=== PATIENT | male | born 1965 | race Caucasian/White ===

== ENCOUNTER 2024-10-20 20:41 | Inpatient (IN) ==
--- NOTE | 2024-10-20 21:07 | Emergency Department Note ---
Impression & Plan Acute upper abdominal pain, Leukocytosis, Hypertension, History of gastrointestinal ulcer ED Provider Note NAME: RED FONSECA AGE: 59 SEX: M : 1965 ARRIVES VIA: Walk-In INFORMANT: [Patient] ED PROVIDER(S): [Robin Hardin MD] CHIEF COMPLAINT: Abdominal pain HISTORY OF PRESENT ILLNESS: The patient is a 59-year-old male who has had epigastric and right upper quadrant abdominal pain all day. He has been nauseated but he has not vomited. The pain has worsened as the day has gone on. Pain does not radiate. There has been no cough or congestion. No pleuritic discomfort. No shortness of breath. Patient does have a history of ulcers, he takes Protonix as needed. The patient did have his gallbladder removed previously. He recently had right rotator cuff surgery performed 9 days ago. He is still in a sling. He has been using Toradol for discomfort. Patient has not noticed diarrhea, no urinary complaints. There has been no trauma to the abdomen. He states that his pain today feels a lot like his pain did before he had his gallbladder removed. PMHx/PSHx/Social Hx: See Below PHYSICAL EXAM: GENERAL: Patient is in no acute distress. HEENT: No acute trauma, normocephalic atraumatic, mucous membranes moist, no nasal congestion. NECK: No stridor, no adenopathy, no meningismus, trachea is midline. LUNGS: Clear to auscultation bilaterally, no wheeze, no rhonchi, breath sounds equal. HEART: Without murmurs gallops or rubs, regular rate and rhythm. ABDOMEN: Soft, moderately tender in the right upper quadrant and epigastrium. No tenderness to the lower abdomen. EXTREMITIES: No cyanosis. His right arm is in a special sling. NEUROLOGIC: Oriented x 3, no acute motor or sensory deficits, no focal weakness. SKIN: No jaundice, no diaphoresis. DIFFERENTIAL DIAGNOSIS: Biliary colic, pancreatitis, ulcer, gastritis, bowel perforation, diverticulitis, among others. EMERGENCY DEPARTMENT PROCEDURES: MEDICAL DECISION MAKING: There is a mild leukocytosis, this certainly could be consistent with infection or just his pain and stress. There is a normal hemoglobin and platelet count. Sodium and potassium are both slightly low but not in need of emergent correction. No renal failure. No concerning liver enzyme elevation. No evidence for pancreatitis. ECG shows a sinus rhythm, no acute ST elevation. Cardiac enzyme testing x 1 is not consistent with acute cardiac injury. Urinalysis does not show findings of infection, no hematuria. Chest x-ray does not show free air or pneumonia. On exam, the patient was tender in the upper abdomen, especially in the epigastrium and right upper quadrant. Abdominal and pelvis CT does not show free air, pancreatitis or other acute pathology. Patient received IV morphine for pain, IV Zofran for nausea, he was given 1 L of IV saline. He was given IV Pepcid. He received IV labetalol for his elevated blood pressure. He required some additional morphine for pain control. The patient recently underwent shoulder surgery. He has been using Toradol for discomfort. He has a history of previous ulcer. He has been on Protonix but only sporadically. Given his presentation, given his past history, I am concerned about the start of a new ulcer versus some gastritis. The patient is quite uncomfortable and I do think requires a hospital stay, monitoring overnight and possibly a GI consult in the morning. I spoke with the patient and case management, the on-call hospitalist was consulted. Prior/Outside records/notes reviewed: None ECG per my interpretation: Indication was abdominal pain. The ECG shows a normal sinus rhythm with a rate of 96. There is some nonspecific ST change and an incomplete right bundle branch block. There is no ST elevation, no PVCs. The QTc is 462. Continuous Cardiac Monitoring per my interpretation: An order was placed for continuous cardiac monitoring. The monitor shows a rate of 98 with normal sinus rhythm. Imaging/x-ray results per my interpretation: Chest x-ray shows some chronic change, I see no free air, mediastinal widening or pneumothorax. There is no pneumonia. Chronic Medical/Social conditions affecting care: Recent right rotator cuff surgery. History of previous cholecystectomy. History of previous gastric ulcer. Care/Management discussed with: Case management, the on-call hospitalist. Level of care consideration(s): After review of the information above and other included data: --I believe the patient requires escalation of care to admission DISPOSITION: Admission Past Med/Surg History Problem List History of gastrointestinal ulcer (Acute) Hypertension (Acute) Leukocytosis (Acute) Acute upper abdominal pain (Acute) Medical History Gastric ulcer Social History Smoking Status: Never smoker Preferred Language: Nepali Feels Safe at Home: Yes Results & Data (ED) Vital Signs Vital Signs - 24 hr 10/20/24 20:43 10/20/24 20:59 10/20/24 22:04 Temperature 36.3 C L Temperature Source Temporal Artery Scan Pulse Rate 104 H 98 H 90 Pulse Rate [Finger] Pulse Rhythm Regular Respiratory Rate 18 18 Respiratory Effort / Characteristics Non-Labored Spontaneous Respiratory Depth Normal Respiratory Pattern Regular Blood Pressure 155/106 H Blood Pressure [Left Arm] Blood Pressure Mean 122 Blood Pressure Mean [Left Arm] Blood Pressure Position Sitting Pulse Oximetry 95 96 Oxygen Delivery Method Room Air Room Air Sepsis Recent Fever Within 48 Hours No Sepsis New/Unexplained Change in Mental Status N/A Sepsis Action Taken by Nursing No Action Required 10/20/24 22:04 10/20/24 22:38 10/20/24 22:53 Temperature Temperature Source Pulse Rate 88 Pulse Rate [Finger] 94 H 91 H Pulse Rhythm Respiratory Rate 18 18 Respiratory Effort / Characteristics Respiratory Depth Respiratory Pattern Blood Pressure 171/94 H Blood Pressure [Left Arm] 137/103 H 148/97 H Blood Pressure Mean Blood Pressure Mean [Left Arm] 114 114 Blood Pressure Position Pulse Oximetry 95 96 Oxygen Delivery Method Room Air Room Air Sepsis Recent Fever Within 48 Hours Sepsis New/Unexplained Change in Mental Status Sepsis Action Taken by Usp Medications Current Medication List: was personally reviewed by me Laboratory Data Attestation: I reviewed the patient's lab results. 10/20/24 21:07 10/20/24 21:07 Lab Results 10/20/24 10/20/24 Range/Units 21:07 21:09 WBC 13.65 H (4.8-10.8) K/ul RBC 5.23 (4.70-6.10) M/uL Hgb 15.9 (14.0-18.0) g/dl Hct 45.0 (42.0-52.0) % MCV 86.0 (80.0-100.0) fL MCH 30.4 (25.0-34.0) pg MCHC 35.3 (32.0-36.0) g/dL RDW Std Deviation 38.8 (36.4-46.3) fL RDW Coeff of Emiliano 12.3 (11.5-14.5) % Plt Count 271 (130-400) K/uL MPV 10.3 (9.4-12.4) fL Immature Gran % (Auto) 0.7 % Neut % (Auto) 73.9 % Lymph % (Auto) 13.6 % [place] % (Auto) 5.6 % Eos % (Auto) 5.0 % Baso % (Auto) 1.2 % Neut # (Auto) 10.10 H (1.40-6.50) K/uL Lymph # (Auto) 1.85 (1.20-3.40) K/uL [place] # (Auto) 0.76 H (0.11-0.59) K/uL Eos # (Auto) 0.68 H (0.00-0.50) K/uL Baso # (Auto) 0.17 (0.00-0.20) K/uL Immature Gran # (Auto) 0.09 (0.01-0.20) K/uL Sodium 132 L (136-145) mmol/L Potassium 3.4 L (3.5-5.1) mmol/L Chloride 99 (98-107) mmol/L Carbon Dioxide 23 (21-32) mmol/L Anion Gap 10 (3-11) BUN 19 (6-23) mg/dl Creatinine 0.83 (0.6-1.4) mg/dl Est Cr Clr Drug Dosing Not Reportable eGFR 100.82 BUN/Creatinine Ratio 22.9 H (10-20) Glucose 110 H (70-99(Fasting)) mg/dl Calcium 9.8 (8.6-10.3) mg/dl Total Bilirubin 0.6 (0.2-1.0) mg/dl AST 15 (13-39) U/L ALT 15 (7-52) U/L Alkaline Phosphatase 48 (34-104) U/L Troponin I High Sens 4.5 (0-20) pg/ml Total Protein 8.0 (6.0-8.3) gm/dl Albumin 4.7 (3.4-5.0) gm/dl Globulin 3.3 (2.5-4.0) gm/dl Albumin/Globulin Ratio 1.4 (0.9-2) Lipase 21 (11-82) U/L Urine Color Yellow Urine Appearance Clear (Clear) Urine pH 5.5 (4.5-7.5) Ur Specific [place] 1.022 (1.000-1.030) Urine Protein Trace H (Negative) Urine Glucose (UA) Negative (Negative) Urine Ketones Negative (Negative) Urine Blood Negative (Negative) Urine Nitrite Negative (Negative) Urine Bilirubin Negative (Negative) Urine Urobilinogen Negative (Negative) Ur Leukocyte Esterase Negative (Negative) Urine WBC (Auto) 0-5 (0-5) /hpf Urine RBC (Auto) 0-2 (0-2) /hpf U Hyaline Cast (Auto) 0-2 (0-2) /lpf U Epithel Cells (Auto) 0-2 (0-2) /hpf Urine Bacteria (Auto) None Seen (None Seen) Administered Medications Discontinued Medications Famotidine (Pepcid 20mg Iv Push) 20 mg in 5 mls @ 2.5 mls/min IV NOW STA Stop: 10/20/24 21:04 Last Admin: 10/20/24 21:29 Dose: 2.5 mls/min Documented By: MAHAD Sodium Chloride (Nss) 1,000 mls @ 999 mls/hr IV .Q1H1M ONE Stop: 10/20/24 22:03 Last Infusion: 10/20/24 22:20 Dose: Infused Documented By: Admin: 10/20/24 21:28 Dose: 999 mls/hr Documented By: MAHAD Pantoprazole Sodium (Protonix) 40 mg in 10 mls @ 5 mls/min IV NOW ONE Stop: 10/20/24 22:27 Last Admin: 10/20/24 22:38 Dose: 5 mls/min Documented By: MAHAD Ioversol (Optiray 320 100ml) 94 ml IV ONCE ONE Stop: 10/20/24 21:46 Last Admin: 10/20/24 21:46 Dose: 94 ml Documented By: JOAN Labetalol HCl (Labetalol Hcl Iv 5 Mg/Ml 20ml) 5 mg IV NOW STA Stop: 10/20/24 22:29 Last Admin: 10/20/24 22:38 Dose: 5 mg Documented By: MAHAD Morphine Sulfate (Morphine Sulfate 10 Mg/Ml Carp/Vial) 6 mg IV NOW STA Stop: 10/20/24 21:04 Last Admin: 12/26/24 21:31 Dose: 6 mg Documented By: MAHAD Ondansetron HCl (Ondansetron Inj 2 Mg/Ml 2 Ml Vial) 4 mg IV NOW STA Stop: 10/20/24 21:04 Last Admin: 10/20/24 21:29 Dose: 4 mg Documented By: MHAAD Imaging Data Radiologist's Impression: Abdomen/Pelvis CT 10/20/24 20:52 Exam(s): CT ABDOMEN + PELVIS With Contrast IV Amt: 94ml optiray 320 EXAM: CT Abdomen and Pelvis With Intravenous Contrast CLINICAL HISTORY: Reason for exam: ruq pain. TECHNIQUE: Axial computed tomography images of the abdomen and pelvis with intravenous contrast. CTDI is 28.14 mGy and DLP is 1619.97 mGy-cm. Automated exposure control was utilized for the study. A dose lowering technique was utilized adhering to the principles of ALARA. CONTRAST: Patient received 94ml optiray 320 of IV contrast COMPARISON: No relevant prior studies available. FINDINGS: Lung bases: Unremarkable. ABDOMEN: Liver: Hepatic steatosis. Gallbladder and bile ducts: Cholecystectomy. Enlarged CBD, likely reservoir effect. Pancreas: Unremarkable. No mass. No ductal dilation. Spleen: Unremarkable. No splenomegaly. Adrenals: Unremarkable. No mass. Kidneys and ureters: Unremarkable. No solid mass. No hydronephrosis. Stomach and bowel: Incidentally noted duodenal diverticulum. No mucosal thickening. No bowel obstruction. PELVIS: Appendix: No evidence of appendicitis. Bladder: Unremarkable. No mass. Reproductive: Unremarkable as visualized. ABDOMEN and PELVIS: Intraperitoneal space: Unremarkable. No free air, significant free fluid, or fluid collection. Bones/joints: No acute fracture. No dislocation. Soft tissues: Fat-containing umbilical hernia. Vasculature: Unremarkable. No abdominal aortic aneurysm. Lymph nodes: Unremarkable. No enlarged lymph nodes. IMPRESSION: No acute findings in the abdomen or pelvis. Electronically signed by: Devonte Crespo M.D. 10/20/24 22:22 PM Chest X-Ray 10/20/24 20:52 Exam(s): XR CXR 1 VIEW EXAM: XR Chest, 1 View CLINICAL HISTORY: Reason for exam: abd pain. TECHNIQUE: Frontal view of the chest. COMPARISON: No relevant prior studies available. FINDINGS: Lungs: Unremarkable. No consolidation. Pleural space: Unremarkable. No pleural effusion or pneumothorax. Heart: Unremarkable. No cardiomegaly or pulmonary vascular congestion. Bones/joints: No acute fracture. No dislocation. IMPRESSION: No evidence of acute cardiopulmonary disease. Electronically signed by: Devonte Crespo M.D. 10/20/24 21:48 PM Discharge Plan Visit Data Chief Complaint: Abdominal Pain Stated Complaint: CHEST AND ABD PAIN, ED Provider: Robin Hardin Discharge Problem: Acute upper abdominal pain, Leukocytosis, Hypertension, History of gastrointestinal ulcer Patient Disposition: Admitted As Inpatient Condition: Fair Forms Stand Alone Forms: [facility] Referrals Referrals: PCP,NO [Physician] - Discharge Problem: Leukocytosis Qualifiers: Leukocytosis type: unspecified Qualified Code(s): D72.829 - Elevated white blood cell count, unspecified Hypertension Qualifiers: Hypertension type: unspecified Qualified Code(s): I10 - Essential (primary) hypertension
[2024-10-20 21:25] LABS: Appearance Urine Clear (Clear); Bacteria Urine Automated None Seen (None Seen); Bilirubin Urine Negative (Negative); Blood Urine Negative (Negative); Cast Urine Automated 0-2 /lpf (0-2); Color Urine Yellow; Epithelial Cell Urine Auto 0-2 /hpf (0-2); Glucose Urine UA Negative (Negative); Ketones Urine Negative (Negative); Leukocyte Esterase Urine Negative (Negative); Nitrite Urine Negative (Negative); Protein Urine Trace (Negative); RBC Urine Automated 0-2 /hpf (0-2); Specific Gravity Urine 1.022 (1.000-1.030); Urobilinogen Urine Negative (Negative); WBC Urine Automated 0-5 /hpf (0-5); pH Urine 5.5 (4.5-7.5)
[2024-10-20] MEDS: SODIUM CHLORIDE 0.9% 1,000 ML IV ONE (21:28)
[2024-10-20] MEDS: FAMOTIDINE 20MG IV PUSH 20 MG/5 ML SYR IV STA (21:29)
[2024-10-20] MEDS: ONDANSETRON INJ 2 MG/ML 2 ML VIAL IV STA (21:29)
[2024-10-20] MEDS: MoRPHine SULFATE 10 MG/ML CARP/VIAL IV STA (21:31)
[2024-10-20 21:36] LABS: Basophils # (auto) 0.17 K/uL (0.00-0.20); Basophils % (auto) 1.2 %; Eosinophils # (auto) 0.68 K/uL (0.00-0.50); Hemoglobin 15.9 g/dl (14.0-18.0); Immature Granulocytes # (auto) 0.09 K/uL (0.01-0.20); Immature Granulocytes % (auto) 0.7 %; Lymphocytes # (auto) 1.85 K/uL (1.20-3.40); Lymphocytes % (auto) 13.6 %; Mean Corpuscular Hemoglobin 30.4 pg (25.0-34.0); Mean Corpuscular Hgb Conc 35.3 g/dL (32.0-36.0); Mean Platelet Volume 10.3 fL (9.4-12.4); Monocytes # (auto) 0.76 K/uL (0.11-0.59); Monocytes % (auto) 5.6 %; Neutrophils % (auto) 73.9 %; Platelet Count 271 K/uL (130-400); RDW Coefficient of Variation 12.3 % (11.5-14.5); RDW Standard Deviation 38.8 fL (36.4-46.3); Red Blood Count 5.23 M/uL (4.70-6.10); White Blood Count 13.65 K/ul (4.8-10.8)
[2024-10-20 21:37] LABS: Alanine Aminotransferase 15 U/L (7-52); Albumin Globulin Ratio 1.4 (0.9-2); Albumin Level 4.7 gm/dl (3.4-5.0); Alkaline Phosphatase 48 U/L (34-104); Anion Gap 10 (3-11); Aspartate Aminotransferase 15 U/L (13-39); BUN Creatinine Ratio 22.9 (10-20); Bilirubin,Total 0.6 mg/dl (0.2-1.0); Blood Urea Nitrogen 19 mg/dl (6-23); Calcium 9.8 mg/dl (8.6-10.3); Carbon Dioxide 23 mmol/L (21-32); Chloride 99 mmol/L (98-107); Globulin 3.3 gm/dl (2.5-4.0); Glucose 110 mg/dl (70-99(Fasting)); Lipase 21 U/L (11-82); Potassium 3.4 mmol/L (3.5-5.1); Sodium 132 mmol/L (136-145)
[2024-10-20 21:43] LABS: Troponin I High Sensitivity 4.5 pg/ml (0-20)
[2024-10-20] MEDS: OPTIRAY 320 100ml IV ONE (21:46)
--- NOTE | 2024-10-20 21:50 | XRay Report ---
Exam(s): XR CXR 1 VIEW EXAM: XR Chest, 1 View CLINICAL HISTORY: Reason for exam: abd pain. TECHNIQUE: Frontal view of the chest. COMPARISON: No relevant prior studies available. FINDINGS: Lungs: Unremarkable. No consolidation. Pleural space: Unremarkable. No pleural effusion or pneumothorax. Heart: Unremarkable. No cardiomegaly or pulmonary vascular congestion. Bones/joints: No acute fracture. No dislocation. IMPRESSION: No evidence of acute cardiopulmonary disease. Electronically signed by: Devonte Crespo M.D. 10/20/24 21:48 PM
--- NOTE | 2024-10-20 22:24 | CT Scan Report ---
Exam(s): CT ABDOMEN + PELVIS With Contrast IV Amt: 94ml optiray 320 EXAM: CT Abdomen and Pelvis With Intravenous Contrast CLINICAL HISTORY: Reason for exam: ruq pain. TECHNIQUE: Axial computed tomography images of the abdomen and pelvis with intravenous contrast. CTDI is 28.14 mGy and DLP is 1619.97 mGy-cm. Automated exposure control was utilized for the study. A dose lowering technique was utilized adhering to the principles of ALARA. CONTRAST: Patient received 94ml optiray 320 of IV contrast COMPARISON: No relevant prior studies available. FINDINGS: Lung bases: Unremarkable. ABDOMEN: Liver: Hepatic steatosis. Gallbladder and bile ducts: Cholecystectomy. Enlarged CBD, likely reservoir effect. Pancreas: Unremarkable. No mass. No ductal dilation. Spleen: Unremarkable. No splenomegaly. Adrenals: Unremarkable. No mass. Kidneys and ureters: Unremarkable. No solid mass. No hydronephrosis. Stomach and bowel: Incidentally noted duodenal diverticulum. No mucosal thickening. No bowel obstruction. PELVIS: Appendix: No evidence of appendicitis. Bladder: Unremarkable. No mass. Reproductive: Unremarkable as visualized. ABDOMEN and PELVIS: Intraperitoneal space: Unremarkable. No free air, significant free fluid, or fluid collection. Bones/joints: No acute fracture. No dislocation. Soft tissues: Fat-containing umbilical hernia. Vasculature: Unremarkable. No abdominal aortic aneurysm. Lymph nodes: Unremarkable. No enlarged lymph nodes. IMPRESSION: No acute findings in the abdomen or pelvis. Electronically signed by: Devonte Crespo M.D. 10/20/24 22:22 PM
[2024-10-20] MEDS: PANTOprazole 40 MG/10 ML SYR IV ONE (22:38)
[2024-10-20] MEDS: LABETALOL HCL IV 5 MG/ML 20ML IV STA (22:38)
[2024-10-20] MEDS: MoRPHine SULFATE 4 MG/ML 1 ML CARP\\VIAL IV STA (23:48)
--- NOTE | 2024-10-21 | History & Physical Report ---
Date of Service October 21, 2024 Assessment & Plan (1) Acute upper abdominal pain: Plan: 59yo male presenting with one day of acute upper abdominal pain. Suspect secondary to recent Toradol use - possible gastritis, esophagitis vs ulcer. No bleeding, no hematemesis/melena/hematochezia. Patient is HD stable with normal BUN and H/H. CT with no evidence of perforation, inflammation or pancreatitis -Admit to medical -Check hemoccult stools once -Maintain NPO for now -Morphine PRN -Protonix 40mg IV BID -Zofran PRN nausea -Consider GI consultation if persistent (2) Hypertension: Plan: Elevated blood pressure on arrival in setting of pain -Pain control -Continue Diovan and Metoprolol -Monitor BP Plan F/E/N - NSS at 125mL/hr + KCl x 2L, K repletion, repeat BMP, NPO for now PPx - Encourage ambulation Code - Full Dispo - Admit to medical with telemetry History of Present Illness Chief Complaint: epigastric pain Primary Care Provider: Meño Alvarez MD Johnathan De Los Santos is a 59yo male presenting with epigastric pain. Patient had right rotator cuff surgery performed on 10/11/24. The surgery was well tolerated with no complications. He has been taking Toradol and Oxycodone q 6 hours for pain control. This AM around 04:30 patient developed severe epigastric pain with bandlike radiation across the upper abdomen. 6/10 in severity, burning/pressure. He has some nausea as well but no vomiting, chills and some diaphoresis associated with the pain. Patient with history of reflux - takes Protonix PRN. He had one prior episode of GIB in the past - June 2024 after taking I buprofen he passed several bloody BMs. Treated with a bland diet. Ate a little bit today - turkey sandwich around 10:30 - no change in his abdominal pain. No additional complaints at this time. In the ER patient afebrile, mildly hypertensive, in continued discomfort ER Course: NSS x 1L Pepcid 20mg IV Zofran 4mg IV Morphine 6mg + 4mg IV Protonix 40mg IV Labetalol 5mg IV Allergies Allergy/AdvReac Type Severity Reaction Status Date / Time [id number] Reductase Allergy Joint Pain Verified 10/21/24 03:32 Inhibitor Home Medications Medication Instructions Recorded Confirmed Type acyclovir 400 mg tablet 400 mg PO DAILY 10/20/24 10/20/24 History chlorthalidone 25 mg tablet 25 mg PO DAILY 10/20/24 10/20/24 History ezetimibe 10 mg tablet 10 mg PO DAILY 10/20/24 10/20/24 History metoprolol succinate 100 mg 100 mg PO DAILY 10/20/24 10/20/24 History tablet,extended release 24 hr pantoprazole 40 mg tablet,delayed 40 mg PO DAILY 10/20/24 10/20/24 History release valsartan 320 mg tablet 320 mg PO DAILY 10/20/24 10/20/24 History Past Med/Surg History Problem List History of gastrointestinal ulcer (Acute) Hypertension (Acute) Leukocytosis (Acute) Acute upper abdominal pain (Acute) Medical History Gastric ulcer Social History Smoking Status: Never smoker Hx Alcohol Use: No Hx Substance Use: No Preferred Language: Pashto Communication Ability: Effective Certified Optician Required: No Beliefs That Will Affect Care: None Current Living Situation: Significant Other Other Information That Helps Us Care for You: No Feels Safe at Home: Yes Safety Concerns: Feels Safe At This Time Assistive Devices: Glasses Review of Systems Review of Systems: All systems reviewed & are unremarkable except as noted in HPI & below Physical Exam Physical Exam: General: patient resting comfortably, NAD, non-toxic in appearance, AA&O x 4 Skin: warm, dry, intact, no rashes or lesions HEENT: NC/AT, PERRL, EOMI, anicteric sclera, conjunctiva without injection, external ear normal to inspection and nontender, nares patent, moist mucus membranes, dentition intact, no oropharyngeal lesions, neck supple, trachea midline, no LAD, no thyromegaly, no JVD Heart: +S1/S2, regular, no m/r/g Lungs: equal air entry bilaterally, no rales/rhonchi/wheezes Abd: +BS, soft, ND, epigastric tenderness on exam with some voluntary guarding, no masses/organomegaly/ascites Ext: warm, 2+ pulses in UE/LE bilaterally, no clubbing/cyanosis or edema Neuro: nonfocal, patient AA&O x 4, speech intact, no facial droop, moving all extremities on command with equal strength 5/5 Results & Data Results & Data Vital Signs (Past 12 Hours) Vital Signs Temp Pulse Pulse Resp BP BP Pulse Ox 10/20/24 23:48 91 H 162/86 H 10/20/24 22:53 91 H 18 148/97 H 96 10/20/24 22:38 88 171/94 H 10/20/24 22:04 94 H 18 137/103 H 95 10/20/24 22:04 90 18 96 10/20/24 20:59 98 H 10/20/24 20:43 36.3 C L 104 H 18 155/106 H 95 O2 Del Method 10/20/24 23:48 10/20/24 22:53 Room Air 10/20/24 22:38 10/20/24 22:04 Room Air 10/20/24 22:04 Room Air 10/20/24 20:59 10/20/24 20:43 Room Air Laboratory Results Laboratory Results WBC 11.84 K/ul (4.8-10.8) H 10/21/24 03:41 RBC 5.02 M/uL (4.70-6.10) 10/21/24 03:41 Hgb 15.2 g/dl (14.0-18.0) 10/21/24 03:41 Hct 43.5 % (42.0-52.0) 10/21/24 03:41 MCV 86.7 fL (80.0-100.0) 10/21/24 03:41 MCH 30.3 pg (25.0-34.0) 10/21/24 03:41 MCHC 34.9 g/dL (32.0-36.0) 10/21/24 03:41 RDW Std Deviation 39.7 fL (36.4-46.3) 10/21/24 03:41 RDW Coeff of Emiliano 12.4 % (11.5-14.5) 10/21/24 03:41 Plt Count 234 K/uL (130-400) 10/21/24 03:41 MPV 10.4 fL (9.4-12.4) 10/21/24 03:41 Immature Gran % (Auto) 0.7 % 10/20/24 21:07 Neut % (Auto) 73.9 % 10/20/24 21:07 Lymph % (Auto) 13.6 % 10/20/24 21:07 [place] % (Auto) 5.6 % 10/20/24 21:07 Eos % (Auto) 5.0 % 10/20/24 21:07 Baso % (Auto) 1.2 % 10/20/24 21:07 Neut # (Auto) 10.10 K/uL (1.40-6.50) H 10/20/24 21:07 Lymph # (Auto) 1.85 K/uL (1.20-3.40) 10/20/24 21:07 [place] # (Auto) 0.76 K/uL (0.11-0.59) H 10/20/24 21:07 Eos # (Auto) 0.68 K/uL (0.00-0.50) H 10/20/24 21:07 Baso # (Auto) 0.17 K/uL (0.00-0.20) 10/20/24 21:07 Immature Gran # (Auto) 0.09 K/uL (0.01-0.20) 10/20/24 21:07 Sodium 132 mmol/L (136-145) L 10/20/24 21:07 Potassium 3.4 mmol/L (3.5-5.1) L 10/20/24 21:07 Chloride 99 mmol/L (98-107) 10/20/24 21:07 Carbon Dioxide 23 mmol/L (21-32) 10/20/24 21:07 Anion Gap 10 (3-11) 10/20/24 21:07 BUN 19 mg/dl (6-23) 10/20/24 21:07 Creatinine 0.83 mg/dl (0.6-1.4) 10/20/24 21:07 Est Cr Clr Drug Dosing Not Reportable 10/20/24 21:07 eGFR 100.82 10/20/24 21:07 BUN/Creatinine Ratio 22.9 (10-20) H 10/20/24 21:07 Glucose 110 mg/dl (70-99(Fasting)) H 10/20/24 21:07 Calcium 9.8 mg/dl (8.6-10.3) 10/20/24 21:07 Total Bilirubin 0.6 mg/dl (0.2-1.0) 10/20/24 21:07 AST 15 U/L (13-39) 10/20/24 21:07 ALT 15 U/L (7-52) 10/20/24 21:07 Alkaline Phosphatase 48 U/L (34-104) 10/20/24 21:07 Troponin I High Sens 4.5 pg/ml (0-20) 10/20/24 21:07 Total Protein 8.0 gm/dl (6.0-8.3) 10/20/24 21:07 Albumin 4.7 gm/dl (3.4-5.0) 10/20/24 21:07 Globulin 3.3 gm/dl (2.5-4.0) 10/20/24 21:07 Albumin/Globulin Ratio 1.4 (0.9-2) 10/20/24 21:07 Lipase 21 U/L (11-82) 10/20/24 21:07 Urine Color Yellow 10/20/24 21:09 Urine Appearance Clear (Clear) 10/20/24 21:09 Urine pH 5.5 (4.5-7.5) 10/20/24 21:09 Ur Specific [place] 1.022 (1.000-1.030) 10/20/24 21:09 Urine Protein Trace (Negative) H 10/20/24 21:09 Urine Glucose (UA) Negative (Negative) 10/20/24 21:09 Urine Ketones Negative (Negative) 10/20/24 21:09 Urine Blood Negative (Negative) 10/20/24 21:09 Urine Nitrite Negative (Negative) 10/20/24 21:09 Urine Bilirubin Negative (Negative) 10/20/24 21:09 Urine Urobilinogen Negative (Negative) 10/20/24 21:09 Ur Leukocyte Esterase Negative (Negative) 10/20/24 21:09 Urine WBC (Auto) 0-5 /hpf (0-5) 10/20/24 21:09 Urine RBC (Auto) 0-2 /hpf (0-2) 10/20/24 21:09 U Hyaline Cast (Auto) 0-2 /lpf (0-2) 10/20/24 21:09 U Epithel Cells (Auto) 0-2 /hpf (0-2) 10/20/24 21:09 Urine Bacteria (Auto) None Seen (None Seen) 10/20/24 21:09 Impressions Abdomen/Pelvis CT 10/20/24 20:52 Exam(s): CT ABDOMEN + PELVIS With Contrast IV Amt: 94ml optiray 320 EXAM: CT Abdomen and Pelvis With Intravenous Contrast CLINICAL HISTORY: Reason for exam: ruq pain. TECHNIQUE: Axial computed tomography images of the abdomen and pelvis with intravenous contrast. CTDI is 28.14 mGy and DLP is 1619.97 mGy-cm. Automated exposure control was utilized for the study. A dose lowering technique was utilized adhering to the principles of ALARA. CONTRAST: Patient received 94ml optiray 320 of IV contrast COMPARISON: No relevant prior studies available. FINDINGS: Lung bases: Unremarkable. ABDOMEN: Liver: Hepatic steatosis. Gallbladder and bile ducts: Cholecystectomy. Enlarged CBD, likely reservoir effect. Pancreas: Unremarkable. No mass. No ductal dilation. Spleen: Unremarkable. No splenomegaly. Adrenals: Unremarkable. No mass. Kidneys and ureters: Unremarkable. No solid mass. No hydronephrosis. Stomach and bowel: Incidentally noted duodenal diverticulum. No mucosal thickening. No bowel obstruction. PELVIS: Appendix: No evidence of appendicitis. Bladder: Unremarkable. No mass. Reproductive: Unremarkable as visualized. ABDOMEN and PELVIS: Intraperitoneal space: Unremarkable. No free air, significant free fluid, or fluid collection. Bones/joints: No acute fracture. No dislocation. Soft tissues: Fat-containing umbilical hernia. Vasculature: Unremarkable. No abdominal aortic aneurysm. Lymph nodes: Unremarkable. No enlarged lymph nodes. IMPRESSION: No acute findings in the abdomen or pelvis. Electronically signed by: Devonte Crespo M.D. 10/20/24 22:22 PM Chest X-Ray 10/20/24 20:52 Exam(s): XR CXR 1 VIEW EXAM: XR Chest, 1 View CLINICAL HISTORY: Reason for exam: abd pain. TECHNIQUE: Frontal view of the chest. COMPARISON: No relevant prior studies available. FINDINGS: Lungs: Unremarkable. No consolidation. Pleural space: Unremarkable. No pleural effusion or pneumothorax. Heart: Unremarkable. No cardiomegaly or pulmonary vascular congestion. Bones/joints: No acute fracture. No dislocation. IMPRESSION: No evidence of acute cardiopulmonary disease. Electronically signed by: Devonte Crespo M.D. 10/20/24 21:48 PM PG Care Time/CCT Total # of Minutes Spent Total Time Spent with Patient: Total time spent is greater than 50% in coordination of care (as documented) at patient's floor/unit and/or counseling patient: Coding Level of Care Code 50368 INT INP/OBS CARE 2/55MIN Diagnoses Acute upper abdominal pain R10.10 Hypertension I10 Hypertension type: unspecified (2) Hypertension Hypertension type: unspecified Qualified Code(s): I10 - Essential (primary) hypertension
[2024-10-21] MEDS ORDERED: MoRPHine SULFATE 2 MG/ML CARP IV PRN (02:25)
[2024-10-21] MEDS ORDERED: DOCUSATE SODIUM 100 MG CAP PO PRN (02:25)
[2024-10-21] MEDS: Patient's ALLERGY Info needs ENTERED STA (03:41)
[2024-10-21] MEDS: MoRPHine SULFATE 4 MG/ML 1 ML CARP\\VIAL IV PRN (03:50)
[2024-10-21] MEDS: NSS + 20MEQ KCL 20 MEQ/1,000 ML BAG IV SCH (03:53)
[2024-10-21 04:30] LABS: Hematocrit (blood only) 43.5 % (42.0-52.0); Hemoglobin 15.2 g/dl (14.0-18.0); Mean Corpuscular Hemoglobin 30.3 pg (25.0-34.0); Mean Corpuscular Hgb Conc 34.9 g/dL (32.0-36.0); Mean Corpuscular Volume 86.7 fL (80.0-100.0); Mean Platelet Volume 10.4 fL (9.4-12.4); Platelet Count 234 K/uL (130-400); RDW Coefficient of Variation 12.4 % (11.5-14.5); RDW Standard Deviation 39.7 fL (36.4-46.3); Red Blood Count 5.02 M/uL (4.70-6.10); White Blood Count 11.84 K/ul (4.8-10.8)
[2024-10-21 04:45] LABS: Calcium 9.4 mg/dl (8.6-10.3); Creatinine Clr Calc Pharmacy 135.2 ml/min; Potassium 3.4 mmol/L (3.5-5.1)
[2024-10-21] MEDS: ACETAMINOPHEN 325 MG TAB PO PRN (08:16)
[2024-10-21] MEDS: VALSARTAN 80 MG TAB PO SCH (09:16)
[2024-10-21] MEDS: ACYCLOVIR 400 MG TAB PO SCH (09:17)
[2024-10-21] MEDS: METOPROLOL SUCC 50MG EXT REL TAB PO SCH (09:17)
[2024-10-21] MEDS: PANTOprazole 40 MG/10 ML SYR IV SCH (09:18)
--- NOTE | 2024-10-21 12:39 | Gastrointestinal Consultation ---
Date of Consultation October 21, 2024 Assessment & Plan (1) Acute upper abdominal pain: 59 year old male w/ history of gastric ulcers, GERD on Pantoprazole 40 mg every other day, cholecystectomy in 2023, right rotator cuff surgery in 2023 on PO NSAIDs admitted w/ epigastric pain - CTAP s/p CCY w/ enlarged CBD, normal LFTs and lipase. Maintain NPO status Tentative plan for EGD evaluation today Can continue IV PPI therapy If EGD negative, recommend MRCP to better evaluate the biliary system Stop NSAIDs for now Needs to follow up with [facility] at discharge as he is 1 year overdue for colonoscopy recall I spent a total of 60 minutes on the date of service in review of patient's record, and previously obtained information in person and appropriate medical visit, discussion and education of plan, with patient and/or caregiver, placing orders for tests/referral/procedures as medically necessary and documentation of pertinent clinical information in patient's medical records for their visit today. We appreciate assistance in the management of any serological abnormality and corrections to include: hemoglobin >7, INR <2, platelets >50,000, potassium levels >3.5 but <5.3, and sodium levels within 5 points of the reference range prior to endoscopic evaluation. Thank you for allowing us to participate in the care of this patient. Please call with any acute changes, questions or concerns. Please see addendum below with additional recommendation from my supervising physician. Supervising Physician Co-Signing Physician Notes I examined the patient and reviewed the medical record, laboratory data and imaging studies. I agree with the assessment and plan of care as suggested by the advanced practice provider. Will plan EGD today and depending upon the findings of the EGD will decide upon further management further recommendations after upper endoscopy History of Present Illness Reason for Consultation: epigastric pain; NSAID use and recent cholecystect Requesting Physician: Justice Beach DO Attending Physician: Justice Beach DO History of Present Illness 59 year old male w/ history of gastric ulcers, GERD on Pantoprazole 40 mg every other day, cholecystectomy in 2023, right rotate cuff surgery in 2023 on PO Toradol who presented through the ED w/ epigastric pain - GI was asked to evaluate. Pt was seen and evaluated, chart reviewed. Suggests that he bas been taking toradol schedule for pain since October 11. Notes he was recovering well but developed upper abd pain yesterday. Pain is midline, epigastric but also radiates to both LUQ and RUQ. There has been some nausea but no vomiting. Denies GERD type symptoms while on PPI therapy. Suggests symptoms are very similar to the pain he had prior to CCY. Denies gallstones. No dysphagia. Stools moving well - no report of black or bloody stools. NSAIDs x 1-2 week Denies ETOH/tobacco to me H&H 15.2/43 BUN 17 CTAP 2023: Liver: Hepatic steatosis. Gallbladder and bile ducts: Cholecystectomy. Enlarged CBD, likely reservoir effect. Pancreas: Unremarkable. No mass. No ductal dilation. Stomach and bowel: Incidentally noted duodenal diverticulum. No mucosal thickening. No bowel obstruction. EGD: suggests 20+ years ago, hx gastric ulcers has been on PPI for GERD since Colonoscopy: suggests he is 1 year overdue, follows with [facility] Allergies Allergy/AdvReac Type Severity Reaction Status Date / Time [id number]-GxV Reductase Allergy Joint Pain Verified 10/21/24 03:32 Inhibitor Home Medications Medication Instructions Recorded Confirmed Type acyclovir 400 mg tablet 400 mg PO DAILY 10/20/24 10/20/24 History chlorthalidone 25 mg tablet 25 mg PO DAILY 10/20/24 10/20/24 History ezetimibe 10 mg tablet 10 mg PO DAILY 10/20/24 10/20/24 History metoprolol succinate 100 mg 100 mg PO DAILY 10/20/24 10/20/24 History tablet,extended release 24 hr pantoprazole 40 mg tablet,delayed 40 mg PO DAILY 10/20/24 10/20/24 History release valsartan 320 mg tablet 320 mg PO DAILY 10/20/24 10/20/24 History Patient History Medical History Gastric ulcer Social History Smoking Status: Never smoker Hx Alcohol Use: No Hx Substance Use: No Preferred Language: Khmer Communication Ability: Effective Consumer Affairs Manager Required: No Beliefs That Will Affect Care: None Current Living Situation: Significant Other Feels Safe at Home: Yes Assistive Devices: None Review of Systems Review of Systems: All other findings negative except as noted in HPI. Physical Exam Constitutional: WD/WN, vitals as above Respiratory: normal respiratory effort, lungs clear to auscultation Cardiovascular: Rate/Rhythm: regular rate and regular rhythm Gastrointestinal (Abdomen): Percussion/Palpation: + abdomen tender and abdomen soft; no guarding and abdomen not rigid Skin: no rashes, warm and dry Results & Data Vital Signs (Past 12 Hours) Vital Signs Temp Pulse Pulse Resp BP BP Pulse Ox 10/21/24 11:44 36.7 C 90 16 151/79 H 94 10/21/24 08:10 105 H 10/21/24 08:07 37.0 C 105 H 20 160/93 H 93 10/21/24 07:15 101 H 10/21/24 03:43 97 H 20 164/102 H 96 10/21/24 03:16 96 H 20 143/90 H 94 10/21/24 02:00 92 H 18 155/96 H 94 10/21/24 01:16 91 H 10/21/24 01:00 93 H 17 159/91 H 92 O2 Del Method 10/21/24 11:44 Room Air 10/21/24 08:10 10/21/24 08:07 Room Air 10/21/24 07:15 10/21/24 03:43 Room Air 10/21/24 03:16 Room Air 10/21/24 02:00 10/21/24 01:16 10/21/24 01:00 Laboratory Results 10/21/24 10/20/24 10/20/24 Range/Units 03:41 21:09 21:07 WBC 11.84 H 13.65 H (4.8-10.8) K/ul RBC 5.02 5.23 (4.70-6.10) M/uL Hgb 15.2 15.9 (14.0-18.0) g/dl Hct 43.5 45.0 (42.0-52.0) % MCV 86.7 86.0 (80.0-100.0) fL MCH 30.3 30.4 (25.0-34.0) pg MCHC 34.9 35.3 (32.0-36.0) g/dL RDW Std Deviation 39.7 38.8 (36.4-46.3) fL RDW Coeff of Emiliano 12.4 12.3 (11.5-14.5) % Plt Count 234 271 (130-400) K/uL MPV 10.4 10.3 (9.4-12.4) fL Immature Gran % (Auto) 0.7 % Neut % (Auto) 73.9 % Lymph % (Auto) 13.6 % [place] % (Auto) 5.6 % Eos % (Auto) 5.0 % Baso % (Auto) 1.2 % Neut # (Auto) 10.10 H (1.40-6.50) K/uL Lymph # (Auto) 1.85 (1.20-3.40) K/uL [place] # (Auto) 0.76 H (0.11-0.59) K/uL Eos # (Auto) 0.68 H (0.00-0.50) K/uL Baso # (Auto) 0.17 (0.00-0.20) K/uL Immature Gran # (Auto) 0.09 (0.01-0.20) K/uL Sodium 134 L 132 L (136-145) mmol/L Potassium 3.4 L 3.4 L (3.5-5.1) mmol/L Chloride 100 99 (98-107) mmol/L Carbon Dioxide 24 23 (21-32) mmol/L Anion Gap 10 10 (3-11) BUN 17 19 (6-23) mg/dl Creatinine 0.81 0.83 (0.6-1.4) mg/dl Est Cr Clr Drug Dosing 135.2 Not Reportable eGFR 101.57 100.82 BUN/Creatinine Ratio 21.0 H 22.9 H (10-20) Glucose 107 H 110 H (70-99(Fasting)) mg/dl Calcium 9.4 9.8 (8.6-10.3) mg/dl Total Bilirubin 0.6 (0.2-1.0) mg/dl AST 15 (13-39) U/L ALT 15 (7-52) U/L Alkaline Phosphatase 48 (34-104) U/L Troponin I High Sens 4.5 (0-20) pg/ml Total Protein 8.0 (6.0-8.3) gm/dl Albumin 4.7 (3.4-5.0) gm/dl Globulin 3.3 (2.5-4.0) gm/dl Albumin/Globulin Ratio 1.4 (0.9-2) Lipase 21 (11-82) U/L Urine Color Yellow Urine Appearance Clear (Clear) Urine pH 5.5 (4.5-7.5) Ur Specific [place] 1.022 (1.000-1.030) Urine Protein Trace H (Negative) Urine Glucose (UA) Negative (Negative) Urine Ketones Negative (Negative) Urine Blood Negative (Negative) Urine Nitrite Negative (Negative) Urine Bilirubin Negative (Negative) Urine Urobilinogen Negative (Negative) Ur Leukocyte Esterase Negative (Negative) Urine WBC (Auto) 0-5 (0-5) /hpf Urine RBC (Auto) 0-2 (0-2) /hpf U Hyaline Cast (Auto) 0-2 (0-2) /lpf U Epithel Cells (Auto) 0-2 (0-2) /hpf Urine Bacteria (Auto) None Seen (None Seen) PG Care Time/CCT Total # of Minutes Spent Total Time Spent with Patient: Total time spent is greater than 50% in coordination of care (as documented) at patient's floor/unit and/or counseling patient: Coding Level of Care Code 34748 IN/OBS CONSULT LVL 4,60M Diagnoses Acute upper abdominal pain R10.10
--- NOTE | 2024-10-21 13:00 | Anesthesiology Consultation ---
Date of Service October 21, 2024 Assessment & Plan Chart Review Chart Review: Acceptable Risk for Surgery and Patient NOT seen in Pre Admission Testing Consults Requested none ASA ASA3 Proposed Anesthesia Anesthesia Type: MAC History Surgery Operation Date: 10/21/24 18:15 Proposed Procedures p Esophagogastroduodenoscopy Case Willoughby MD Height/Weight Height: 5 ft 10 in Weight: 133.8 kg Allergies Allergy/AdvReac Type Severity Reaction Status Date / Time Hkxhnmr-UJU-SjW Reductase Allergy Joint Pain Verified 10/21/24 03:32 Inhibitor Medications Home Medications Medication Instructions Recorded Confirmed Last Taken acyclovir 400 mg tablet 400 mg PO DAILY 10/20/24 10/20/24 Unknown chlorthalidone 25 mg tablet 25 mg PO DAILY 10/20/24 10/20/24 Unknown ezetimibe 10 mg tablet 10 mg PO DAILY 10/20/24 10/20/24 Unknown metoprolol succinate 100 mg 100 mg PO DAILY 10/20/24 10/20/24 Unknown tablet,extended release 24 hr pantoprazole 40 mg tablet,delayed 40 mg PO DAILY 10/20/24 10/20/24 Unknown release valsartan 320 mg tablet 320 mg PO DAILY 10/20/24 10/20/24 Unknown Active Medications Generic Name Dose Route Start Last Admin Trade Name Freq PRN Reason Stop Dose Admin Acetaminophen 650 mg 10/21/24 02:25 10/21/24 08:16 Acetaminophen 325 Mg Tab PO 11/20/24 02:24 650 mg Q4H PRN Administration Pain or Fever Acyclovir 400 mg 10/21/24 09:00 10/21/24 09:17 Acyclovir 400 Mg Tab PO 11/20/24 08:59 400 mg DAILY BINU Administration Pantoprazole Sodium 40 mg in 10 mls @ 5 mls/min 10/21/24 09:00 10/21/24 09:18 Protonix IV 11/20/24 08:59 5 mls/min BID BINU Administration Potassium Chloride/Sodium Chloride 20 meq in 1,000 mls @ 125 mls/hr 10/21/24 03:45 10/21/24 11:53 Normal Saline W/20 Meq Kcl IV 10/21/24 19:44 Infused .Q8H BINU Infusion Metoprolol Succinate 100 mg 10/21/24 09:00 10/21/24 09:17 Metoprolol Succ 50mg Ext Rel Tab PO 11/20/24 08:59 100 mg DAILY BINU Administration Morphine Sulfate 4 mg 10/21/24 02:25 10/21/24 08:16 Morphine Sulfate 4 Mg/Ml 1 Ml Carp\Vial IV 11/04/24 02:24 4 mg Q3H PRN Administration Pain (6,7,8,9,10) Valsartan 320 mg 10/21/24 09:00 10/21/24 09:16 Valsartan 80 Mg Tab PO 11/20/24 08:59 320 mg DAILY BINU Administration Past Medical History Medical History Gastric ulcer morbid obesity HTN Hx/O Bleed Gerd Exercise / Class Metabolic Activity II 4-5 Yardwork/Stairs/Walk up hill Past Anesthesia History No Hx of Anesthesia Complications and No Family Hx of Anesthesia Complications History of PONV No Hx of PONV and No Hx of Motion Sickness Social History Smoking Status: Never smoker Hx Alcohol Use: No Hx Substance Use: No Physical Exam Vital Signs Last Vital Signs Temp 36.7 C 10/21/24 11:44 Pulse 90 10/21/24 11:44 Resp 16 10/21/24 11:44 BP 151/79 H 10/21/24 11:44 Pulse Ox 94 10/21/24 11:44 O2 Del Method Room Air 10/21/24 11:44 Testing Laboratory Results 10/21/24 03:41 10/21/24 03:41 Urine Color Yellow 10/20/24 21:09 Urine Appearance Clear (Clear) 10/20/24 21:09 Urine pH 5.5 (4.5-7.5) 10/20/24 21:09 Ur Specific [place] 1.022 (1.000-1.030) 10/20/24 21:09 Urine Protein Trace (Negative) H 10/20/24 21:09 Urine Glucose (UA) Negative (Negative) 10/20/24 21:09 Urine Ketones Negative (Negative) 10/20/24 21:09 Urine Nitrite Negative (Negative) 10/20/24 21:09 Ur Leukocyte Esterase Negative (Negative) 10/20/24 21:09 Urine WBC (Auto) 0-5 /hpf (0-5) 10/20/24 21:09 Urine RBC (Auto) 0-2 /hpf (0-2) 10/20/24 21:09 U Hyaline Cast (Auto) 0-2 /lpf (0-2) 10/20/24 21:09 U Epithel Cells (Auto) 0-2 /hpf (0-2) 10/20/24 21:09 Urine Bacteria (Auto) None Seen (None Seen) 10/20/24 21:09 Electrocardiogram Date: 10/20/24 Findings: + NSR @ (@ 96;IRBBB;LAD) Chest X-Ray Date: 10/20/24 Findings: + NAD
[2024-10-21] MEDS ORDERED: ePHEDrine sulfate 50 MG/ML AMP IV PRN (13:02)
[2024-10-21] MEDS ORDERED: ATROPINE SULFATE 0.1 MG/ML 10ML SYR IV PRN (13:02)
--- NOTE | 2024-10-21 13:11 | Hospitalist Progress Note ---
Date of Service October 21, 2024 Assessment & Plan (1) Acute upper abdominal pain: (2) Gastritis: (3) Leukocytosis: (4) Hypertension: Plan Acute upper abdominal pain/Gastritis - Began yesterday 4:30 am, epigastric region and bilateral radiation to RUQ and LUQ - Pain control with IV morphine sulfate 4 mg Q3h - IV Pantoprazole 40mg BID - GI consult placed, EGD completed: positive for gastritis and mild CBD dilation - GI recs: abdominal U/S to r/o stone in CBD, if positive will need ERCP at tertiary center - RUQ U/S: Mild CBD dilation likely due to postoperative changes from cholecystectomy February 2024 - Continue pain management, liquid diet: advance as tolerated Leukocytosis - WBC 13.65 -> 11.84, neutrophils: 10.10 - Resolving HTN - Moderately hypertensive while in ED with more severe abdominal pain; resolving - Current 129/86 - Continue metoprolol succinate 100mg PO daily, Valsartan 320 mg, and chlorthalidone outpatient medications upon d/c Admission and Anticipated Discharge Date Admission Date: October 20, 2024 Supervising Physician Co-Signing Physician Notes ATTESTATION I also saw the patient and confirmed verdugo portions of the history and exam. I agree with the impression and plan in the resident documentation, and as summarized below. Patient with slightly less pain this morning - longer interval since last pain medication - but still with persistent upper abdominal pain and no deire to eat. Of note, cholecystectomy in spring of this year. Remote history of gastritis (question ulcer), but had reduced PPI since all GI symptoms resolved post GB surgery. More recent shoulder surgery with Toradol for pain, although limited use prior to rather sudden onset of GI pain. EXAM Vital signs as noted, stable Alert and oriented. No acute distress. Heart regular rate and rhythm Respirations nonlabored Mild to moderate upper GI tenderness without rebound or guarding Bowel sounds noted throughout DATA Labs Mild leukocytosis, other downtrending LFTs from admission are within normal limits Imaging CT of the abdomen pelvis on admission shows no acute findings. Micro No cultures upon admission IMPRESSION & PLAN upper abdominal pain Differential diagnosis includes NSAID induced gastritis versus retained stone with respect to recent cholecystectomy, although LFTs and imaging thus far within normal limits continue n.p.o. continue IV Protonix will consult GI for further recommendations, possible EGD Additional per resident documentation Subjective Johnathan De Los Santos is a 59 y/o M with a past medical history gastric ulcer s/p endoscopy and treatment 1995, HTN, cholecystitis s/p cholecystectomy in February 2024 and recent rotator cuff surgery using on Toradol for pain management admitted to [facility] for acute abdominal pain lasting one day. Patient explains that the pain is approximately a 6-7/10 epigastric pain that extends bilaterally to the RUQ and LUQ. Patient's shoulder surgery was 10 days ago and he endorses that he was using his toradol medication consistently til this past Thursday. After this he briefly stopped toradol use until yesterday when his abdominal pain began. Patient is in 3-4/10 pain after being given Morphine 2mg. Patient explains that the pain is most similar to his acute cholecystitis and explains at that time he had RUQ abdominal pain that spread laterally to affect the epigastric and LUQ abdominal regions. Today the patient denies chest pain, palpitations, SOB, cough, wheeze, vomiting, dizziness. Patient does endorse ongoing nausea and abdominal pain. Physical Exam Physical Exam: General: patient resting comfortably, NAD, non-toxic in appearance, answers questions appropriately. Skin: warm, dry, intact HEENT: NC/AT, anicteric sclera, conjunctiva without injection, moist mucus membranes. Heart: +S1/S2, regular, no m/r/g Lungs: equal air entry bilaterally, no rales/rhonchi/wheezes Abd: +BS, soft, epigastric tenderness radiating BL to RUQ and LUQ Ext: warm, no clubbing/cyanosis or edema Neuro: nonfocal, speech intact, no facial droop, moving all extremities. Results & Data Results & Data Vital Signs (Past 12 Hours) Vital Signs Temp Pulse Pulse Resp BP BP Pulse Ox 10/21/24 11:44 36.7 C 90 16 151/79 H 94 10/21/24 08:10 105 H 10/21/24 08:07 37.0 C 105 H 20 160/93 H 93 10/21/24 07:15 101 H 10/21/24 03:43 97 H 20 164/102 H 96 10/21/24 03:16 96 H 20 143/90 H 94 10/21/24 02:00 92 H 18 155/96 H 94 10/21/24 01:16 91 H O2 Del Method 10/21/24 11:44 Room Air 10/21/24 08:10 10/21/24 08:07 Room Air 10/21/24 07:15 10/21/24 03:43 Room Air 10/21/24 03:16 Room Air 10/21/24 02:00 10/21/24 01:16 Resident Activity Tracking Resident Involvement: Resident Care Provided Care Provided: Adult Hospital Medicine (3) Leukocytosis Leukocytosis type: unspecified Qualified Code(s): D72.829 - Elevated white blood cell count, unspecified (4) Hypertension Hypertension type: unspecified Qualified Code(s): I10 - Essential (primary) hypertension
--- NOTE | 2024-10-21 13:42 | GI REPORT ---
[facility] Patient: RED FONSECA : 1965 Sex at : Male Age: 59 Years Procedure: Upper GI endoscopy Date: 10/21/2024 Attending Physician: Gerald Willoughby MD Referring MD: MARGOT MOORE; [place] Indications: - Abdominal pain Medications: - Monitored Anesthesia Care Complications: - No immediate complications. Estimated Blood Loss: - Estimated blood loss: None. Procedure: - The egd scope was introduced through the mouth and advanced to the second part of the duodenum. - The upper GI endoscopy was accomplished with ease. - The patient tolerated the procedure well. Findings: - Small hiatal hernia diffuse gastritis biopsy done for H. pylori multiple fundic gland appearing polyps in the fundus and body 2 of which were biopsied Impression: - Small hiatal hernia diffuse gastritis biopsy done for H. pylori multiple fundic gland appearing polyps in the fundus and body 2 of which were biopsied Recommendation: - Continue with PPI would obtain ultrasound of the right upper quadrant to evaluate for common bile duct follow-up pathology full liquid diet advance as tolerated Procedure Code(s): - 97696, Esophagogastroduodenoscopy, flexible, transoral; diagnostic, including collection of specimen(s) by brushing or washing, when performed (separate procedure) CPT(R) - 2023 copyright [employer]. All Rights Reserved. The CPT codes, CCI edits and ICD codes generated are intended as suggestions and were generated based on input data. These codes are preliminary and upon surgical scrub technician review may be revised to meet current compliance and payer requirements. The provider is responsible for the final determination of appropriate codes, and modifiers. Gerald Willoughby MD This document has been electronically signed. Note Initiated:10/21/2024 Note Completed:10/21/2024 1:41 PM [id number]
--- NOTE | 2024-10-21 13:47 | Anesthesiology Progress Note ---
Date of Service October 21, 2024 Anesthesia Post Procedure Vital Signs Vital Signs: Temp Pulse Pulse Resp BP BP Pulse Ox 10/21/24 13:42 36 C L 93 H 14 98/63 L 93 10/21/24 13:12 38.3 C H 97 H 16 152/85 H 93 10/21/24 11:44 36.7 C 90 16 151/79 H 94 10/21/24 08:10 105 H 10/21/24 08:07 37.0 C 105 H 20 160/93 H 93 10/21/24 07:15 101 H 10/21/24 03:43 97 H 20 164/102 H 96 10/21/24 03:16 96 H 20 143/90 H 94 10/21/24 02:00 92 H 18 155/96 H 94 10/21/24 01:16 91 H 10/21/24 01:00 93 H 17 159/91 H 92 10/20/24 23:48 91 H 162/86 H 10/20/24 23:00 89 18 162/86 H 95 10/20/24 22:53 91 H 18 148/97 H 96 10/20/24 22:38 88 171/94 H 10/20/24 22:30 88 18 171/94 H 95 10/20/24 22:04 94 H 18 137/103 H 95 10/20/24 22:04 90 18 96 10/20/24 20:59 98 H 10/20/24 20:43 36.3 C L 104 H 18 155/106 H 95 O2 Del Method 10/21/24 13:42 Room Air 10/21/24 13:12 Room Air 10/21/24 11:44 Room Air 10/21/24 08:10 10/21/24 08:07 Room Air 10/21/24 07:15 10/21/24 03:43 Room Air 10/21/24 03:16 Room Air 10/21/24 02:00 10/21/24 01:16 10/21/24 01:00 10/20/24 23:48 10/20/24 23:00 10/20/24 22:53 Room Air 10/20/24 22:38 10/20/24 22:30 10/20/24 22:04 Room Air 10/20/24 22:04 Room Air 10/20/24 20:59 10/20/24 20:43 Room Air Pain Intensity Upper Abdomen: Pain Intensity: 6 Transfer of Care Handoff Completed per policy Notes Mental Status: alert / awake / arousable Patient Amnestic to Procedure: Yes Nausea / Vomiting: adequately controlled Pain: adequately controlled Airway Patency, RR, SpO2: stable & adequate BP & HR: stable & adequate Hydration State: stable & adequate Anesthetic Complications: no major complications apparent
[2024-10-21] MEDS: ACETAMINOPHEN 1,000 MG/100 ML VIAL IV STA (14:47)
[2024-10-21] MEDS: LIDOCAINE 2% 2 ML VIAL/AMP(20MG/ML) INFIL ONE (14:54)
[2024-10-21] MEDS: fentaNYL citrate PF 100 MCG/2 ML VIAL ONE (14:55)
[2024-10-21] MEDS: PROPOFOL IV EMULSION 10 MG/ML 20 ML VIAL IV ONE (14:55)
[2024-10-21] MEDS: BENZOCAINE/TETRACAIN/BUTAM 50 APPLN/5 GM CAN EXT ONE (14:55)
--- NOTE | 2024-10-21 15:38 | Ultrasound Report ---
ABDOMINAL ULTRASOUND, RIGHT UPPER QUADRANT HISTORY: Acute right upper quadrant abdominal pain Assess for CBD pathology. COMPARISON: CT 10/20/2024 FINDINGS: Limited exam secondary to body habitus. Pancreas: The pancreas demonstrates a normal echotexture. Liver: Increased echogenicity with mild enlargement. No mass identified. Gallbladder: Cholecystectomy. CBD: 9 mm, likely on a post operative basis. Right kidney: No hydronephrosis. IMPRESSION: 1. Mild dilation of the common bile duct status post cholecystectomy, likely on a postoperative basis . 2. Hepatomegaly with hepatic steatosis. ACT 112: Negative or not required by law. Electronically signed by: Rd Petty M.D. 10/21/2024 3:36 PM
--- NOTE | 2024-10-21 15:47 | Electrocardiogram Report ---
Test Reason : Blood Pressure : */* mmHG Vent. Rate : 96 BPM Atrial Rate : 96 BPM P-R Int : 192 ms QRS Dur : 100 ms QT Int : 366 ms P-R-T Axes : 37 -56 5 degrees QTcB Int : 462 ms Normal sinus rhythm Left axis deviation Incomplete right bundle branch block Abnormal ECG No previous ECGs available Confirmed by Rob Pope ([id number]) on 10/21/2024 3:46:47 PM Referred By: REFERRED SELF Confirmed By: Rob Pope
[2024-10-21] MEDS: ONDANSETRON INJ 2 MG/ML 2 ML VIAL IV PRN (18:03)
[2024-10-22 07:57] LABS: Basophils # (auto) 0.11 K/uL (0.00-0.20); Basophils % (auto) 1.5 %; Eosinophils # (auto) 0.51 K/uL (0.00-0.50); Eosinophils % (auto) 7.1 %; Hematocrit (blood only) 42.3 % (42.0-52.0); Hemoglobin 14.1 g/dl (14.0-18.0); Immature Granulocytes # (auto) 0.04 K/uL (0.01-0.20); Immature Granulocytes % (auto) 0.6 %; Lymphocytes # (auto) 1.22 K/uL (1.20-3.40); Lymphocytes % (auto) 17.1 %; Mean Corpuscular Hemoglobin 29.6 pg (25.0-34.0); Mean Corpuscular Hgb Conc 33.3 g/dL (32.0-36.0); Mean Corpuscular Volume 88.7 fL (80.0-100.0); Mean Platelet Volume 10.4 fL (9.4-12.4); Monocytes # (auto) 1.34 K/uL (0.11-0.59); Monocytes % (auto) 18.7 %; Neutrophils # (auto) 3.93 K/uL (1.40-6.50); Platelet Count 181 K/uL (130-400); RDW Coefficient of Variation 12.8 % (11.5-14.5); RDW Standard Deviation 41.3 fL (36.4-46.3); Red Blood Count 4.77 M/uL (4.70-6.10); White Blood Count 7.15 K/ul (4.8-10.8)
[2024-10-22 08:12] LABS: BUN Creatinine Ratio 18.1 (10-20); Creatinine Clr Calc Pharmacy 131.7 ml/min; Potassium 3.3 mmol/L (3.5-5.1)
[2024-10-22 10:40] LABS: Bilirubin Direct 0.1 mg/dl (0-0.2); Bilirubin,Total 0.7 mg/dl (0.2-1.0); Total Protein 7.1 gm/dl (6.0-8.3)
--- NOTE | 2024-10-22 10:40 | Hospitalist Progress Note ---
Date of Service October 22, 2024 Assessment & Plan (1) Acute upper abdominal pain: (2) Gastritis: (3) Leukocytosis: (4) Hypertension: Plan Acute upper abdominal pain/Gastritis - Began yesterday 4:30 am, epigastric region and bilateral radiation to RUQ and LUQ - Pain control with IV morphine sulfate 4 mg Q3h - IV Pantoprazole 40mg BID - GI consult placed, EGD completed: positive for gastritis and mild CBD dilation - GI recs: abdominal U/S to r/o stone in CBD, if positive will need ERCP at tertiary center - RUQ U/S: Mild CBD dilation likely due to postoperative changes from cholecystectomy February 2024 - Continue pain management, regular diet started Leukocytosis - WBC 13.65 -> 11.84 -> 7.18, neutrophils: 10.10 - Resolved HTN - Moderately hypertensive while in ED with more severe abdominal pain; resolving - Current 129/86 - Continue metoprolol succinate 100mg PO daily, Valsartan 320 mg, and chlorthalidone outpatient medications upon d/c Admission and Anticipated Discharge Date Admission Date: October 20, 2024 Supervising Physician Co-Signing Physician Notes ATTESTATION I also saw the patient and confirmed verdguo portions of the history and exam. I agree with the impression and plan in the resident documentation, and as summarized below. He felt better overnight and this morning. We added some crackers initially and then tried to advance diet, although he had some recurrent pain. This improved with some Maalox. EXAM Vital signs as noted, stable Alert and oriented. No acute distress. Heart regular rate and rhythm Respirations nonlabored No abdominal tenderness appreciated. Bowel sounds noted throughout DATA Labs CBC normal LFTs from admission are within normal limits Slight hypokalemia Imaging CT of the abdomen pelvis on admission shows no acute findings. US shows CBD at 9mm. EGD demonstrates diffuse gastritis. Micro No cultures upon admission IMPRESSION & PLAN Gastritis, NSAID induced Differential diagnosis includes NSAID induced gastritis versus retained stone with respect to recent cholecystectomy, although LFTs and imaging thus far within normal limits Continue PPI BID; will need this for at least 6-8 weeks before stepdown Advance diet as tolerated Add Carafate if continued symptoms; this may help in the short term Common bile duct at 9 mm most likely related to recent cholecystectomy Normal LFTs noted upon admission and repeat argues against retained stone Hypokalemia, mild Should improve with diet Recheck in AM Additional per resident documentation Subjective Johnathan De Los Santos is a 59 y/o M with a past medical history gastric ulcer s/p endoscopy and treatment 1995, HTN, cholecystitis s/p cholecystectomy in February 2024 and recent rotator cuff surgery using on Toradol for pain management admitted to [facility] for acute abdominal pain lasting one day. Today patient symptoms fluctuated throughout the day. In the morning patient was without pain, diet was advanced to liquids for breakfast and then solids for lunch. Patient endorsed increased abdominal epigastric pain at 11am, but this decreased after GI cocktail and was able to tolerate lunch without increased pain. Patient is afebrile and hemodynamically stable. Physical Exam Physical Exam: General: patient resting comfortably, NAD, non-toxic in appearance, answers questions appropriately. Skin: warm, dry, intact HEENT: NC/AT, anicteric sclera, conjunctiva without injection, moist mucus membranes. Heart: +S1/S2, regular, no m/r/g Lungs: equal air entry bilaterally, no rales/rhonchi/wheezes Abd: +BS, soft, epigastric tenderness radiating BL to RUQ and LUQ Ext: warm, no clubbing/cyanosis or edema Neuro: nonfocal, speech intact, no facial droop, moving all extremities. Results & Data Results & Data Vital Signs (Past 12 Hours) Vital Signs Temp Pulse Resp BP Pulse Ox O2 Del Method 10/22/24 07:42 37.1 C 79 16 144/88 H 94 Room Air 10/22/24 04:00 36.9 C 86 16 163/80 H 97 Room Air 10/22/24 00:17 37.2 C 10/21/24 23:24 37.8 C H 91 H 18 131/75 92 Room Air Resident Activity Tracking Resident Involvement: Resident Care Provided Care Provided: Adult Hospital Medicine (3) Leukocytosis Leukocytosis type: unspecified Qualified Code(s): D72.829 - Elevated white blood cell count, unspecified (4) Hypertension Hypertension type: unspecified Qualified Code(s): I10 - Essential (primary) hypertension
[2024-10-22] MEDS: ALUMINUM/MAGNESIUM SUSP 30 ML UDC PO PRN (12:10)
[2024-10-22] MEDS: SIMETHICONE 80 MG CHEW PO PRN (12:11)
[2024-10-22] MEDS: FAMOTIDINE 20 MG TAB PO SCH (12:25)
[2024-10-23 07:28] LABS: Basophils # (auto) 0.12 K/uL (0.00-0.20); Basophils % (auto) 2.1 %; Eosinophils # (auto) 1.23 K/uL (0.00-0.50); Eosinophils % (auto) 21.5 %; Hematocrit (blood only) 43.9 % (42.0-52.0); Hemoglobin 15.1 g/dl (14.0-18.0); Immature Granulocytes # (auto) 0.03 K/uL (0.01-0.20); Immature Granulocytes % (auto) 0.5 %; Lymphocytes # (auto) 1.21 K/uL (1.20-3.40); Lymphocytes % (auto) 21.2 %; Mean Corpuscular Hemoglobin 30.1 pg (25.0-34.0); Mean Corpuscular Hgb Conc 34.4 g/dL (32.0-36.0); Mean Corpuscular Volume 87.5 fL (80.0-100.0); Mean Platelet Volume 10.6 fL (9.4-12.4); Monocytes # (auto) 0.49 K/uL (0.11-0.59); Monocytes % (auto) 8.6 %; Neutrophils # (auto) 2.64 K/uL (1.40-6.50); Neutrophils % (auto) 46.1 %; Platelet Count 188 K/uL (130-400); RDW Coefficient of Variation 12.5 % (11.5-14.5); RDW Standard Deviation 40.3 fL (36.4-46.3); Red Blood Count 5.02 M/uL (4.70-6.10); White Blood Count 5.72 K/ul (4.8-10.8)
[2024-10-23 07:50] LABS: Albumin Globulin Ratio 1.2 (0.9-2); Bilirubin,Total 1.6 mg/dl (0.2-1.0); Calcium 9.1 mg/dl (8.6-10.3); Creatinine Clr Calc Pharmacy 135.5 ml/min; Globulin 3.4 gm/dl (2.5-4.0); Potassium 3.3 mmol/L (3.5-5.1); Total Protein 7.4 gm/dl (6.0-8.3)
[2024-10-23] MEDS: POTASSIUM CHLORIDE CRTAB 20 MEQ TABCR PO STA (08:01)
--- NOTE | 2024-10-23 10:05 | Hospitalist Progress Note ---
Date of Service October 23, 2024 Assessment & Plan (1) Acute upper abdominal pain: (2) Gastritis: (3) Leukocytosis: (4) Hypertension: Plan Acute upper abdominal pain/Gastritis - Began yesterday 4:30 am, epigastric region and bilateral radiation to RUQ and LUQ - Pain control with IV morphine sulfate 4 mg Q3h - IV Pantoprazole 40mg BID - GI consult placed, EGD completed: positive for gastritis and mild CBD dilation - GI recs: abdominal U/S to r/o stone in CBD, if positive will need ERCP at tertiary center - RUQ U/S: Mild CBD dilation likely due to postoperative changes from cholecystectomy February 2024 - Continue pain management, regular diet started Leukocytosis - WBC 13.65 -> 11.84 -> 7.18, neutrophils: 10.10 - Resolved HTN - Moderately hypertensive while in ED with more severe abdominal pain; resolving - Current 129/86 - Continue metoprolol succinate 100mg PO daily, Valsartan 320 mg, and chlorthalidone outpatient medications upon d/c Admission and Anticipated Discharge Date Admission Date: October 20, 2024 Mallorie De Los Santos is a 59 y/o M with a past medical history gastric ulcer s/p endoscopy and treatment 1995, HTN, cholecystitis s/p cholecystectomy in February 2024 and recent rotator cuff surgery using on Toradol for pain management admitted to [facility] for acute abdominal pain lasting one day. Today patient symptoms fluctuated throughout the day. In the morning patient was without pain, diet was advanced to liquids for breakfast and then solids for lunch. Patient endorsed increased abdominal epigastric pain at 11am, but this decreased after GI cocktail and was able to tolerate lunch without increased pain. Patient is afebrile and hemodynamically stable. Physical Exam Physical Exam: General: patient resting comfortably, NAD, non-toxic in appearance, answers questions appropriately. Skin: warm, dry, intact HEENT: NC/AT, anicteric sclera, conjunctiva without injection, moist mucus membranes. Heart: +S1/S2, regular, no m/r/g Lungs: equal air entry bilaterally, no rales/rhonchi/wheezes Abd: +BS, soft, epigastric tenderness radiating BL to RUQ and LUQ Ext: warm, no clubbing/cyanosis or edema Neuro: nonfocal, speech intact, no facial droop, moving all extremities. Results & Data Results & Data Vital Signs (Past 12 Hours) Vital Signs Temp Pulse Pulse Resp BP Pulse Ox O2 Del Method 10/23/24 07:55 36.5 C 69 16 137/86 94 Room Air 10/23/24 07:04 66 10/23/24 02:15 36.6 C 73 18 127/81 93 Room Air 10/22/24 22:48 36.8 C 66 18 129/78 94 Room Air 10/22/24 22:08 75 (3) Leukocytosis Leukocytosis type: unspecified Qualified Code(s): D72.829 - Elevated white blood cell count, unspecified (4) Hypertension Hypertension type: unspecified Qualified Code(s): I10 - Essential (primary) hypertension
--- NOTE | 2024-10-23 10:25 | Gastroenterology Progress Note ---
Date of Service October 23, 2024 Assessment & Plan (1) Acute upper abdominal pain: Plan: There are not too many things that can cause an abrupt rise in LFT's of the magnitude that happened here. Short of shock liver--which he has not had any problems with hypotension--CBD stone is the main thing to be concerned about. I think he needs an ERCP but I suspect receiving doctor will want MRCP done first. His pain is intermittent and ERCP can be done electively but if he has a CBD stone then he risks cholangitis at some point. I guess sphincter of Oddi dysfunction could cause this but he does not fit the typical pattern or picture of an SOD patient. Admission and Anticipated Discharge Date Admission Date: October 20, 2024 Subjective Asked to see patient for bump in LFT's over night. He had an episode of pain mid to late morning yesterday but none over night. LFT's yesterday were normal as they were the day before. Today his AST is 716, ALT is 498 and alk phos is 215 and he is still feeling well. On questioning he tells me he had his gallbladder out because it was over functioning with an ejection fraction of 97%. He tells me nobody told him anything about gall stones. Physical Exam Physical Exam: He looks comfortable. Results & Data Vital Signs (Past 12 Hours) Vital Signs Temp Pulse Pulse Resp BP Pulse Ox O2 Del Method 10/23/24 07:55 36.5 C 69 16 137/86 94 Room Air 10/23/24 07:04 66 10/23/24 02:15 36.6 C 73 18 127/81 93 Room Air 10/22/24 22:48 36.8 C 66 18 129/78 94 Room Air Laboratory Results 10/23/24 10/22/24 Range/Units 06:44 07:22 WBC 5.72 (4.8-10.8) K/ul RBC 5.02 (4.70-6.10) M/uL Hgb 15.1 (14.0-18.0) g/dl Hct 43.9 (42.0-52.0) % MCV 87.5 (80.0-100.0) fL MCH 30.1 (25.0-34.0) pg MCHC 34.4 (32.0-36.0) g/dL RDW Std Deviation 40.3 (36.4-46.3) fL RDW Coeff of Emiliano 12.5 (11.5-14.5) % Plt Count 188 (130-400) K/uL MPV 10.6 (9.4-12.4) fL Immature Gran % (Auto) 0.5 % Neut % (Auto) 46.1 % Lymph % (Auto) 21.2 % [place] % (Auto) 8.6 % Eos % (Auto) 21.5 % Baso % (Auto) 2.1 % Neut # (Auto) 2.64 (1.40-6.50) K/uL Lymph # (Auto) 1.21 (1.20-3.40) K/uL [place] # (Auto) 0.49 (0.11-0.59) K/uL Eos # (Auto) 1.23 H (0.00-0.50) K/uL Baso # (Auto) 0.12 (0.00-0.20) K/uL Immature Gran # (Auto) 0.03 (0.01-0.20) K/uL Sodium 137 (136-145) mmol/L Potassium 3.3 L (3.5-5.1) mmol/L Chloride 103 (98-107) mmol/L Carbon Dioxide 27 (21-32) mmol/L Anion Gap 7 (3-11) BUN 16 (6-23) mg/dl Creatinine 0.80 (0.6-1.4) mg/dl Est Cr Clr Drug Dosing 135.5 ml/min eGFR 101.95 BUN/Creatinine Ratio 20.0 (10-20) Glucose 96 (70-99(Fasting)) mg/dl Calcium 9.1 (8.6-10.3) mg/dl Total Bilirubin 1.6 H D 0.7 (0.2-1.0) mg/dl Direct Bilirubin 0.1 (0-0.2) mg/dl AST 716 H 14 (13-39) U/L ALT 498 H 12 (7-52) U/L Alkaline Phosphatase 215 H D 38 (34-104) U/L Total Protein 7.4 7.1 (6.0-8.3) gm/dl Albumin 4.0 4.0 (3.4-5.0) gm/dl Globulin 3.4 (2.5-4.0) gm/dl Albumin/Globulin Ratio 1.2 (0.9-2)
--- NOTE | 2024-10-23 14:51 | Magnetic Resonance Report ---
Clinical history: Abdominal pain. Elevated liver function tests Technique: Multiple T1 and T2-weighted magnetic resonance images were obtained of the abdomen without gadolinium contrast. MRCP images were obtained Comparison is made to the CT dated 10/20/2024 Findings: No definite liver mass lesion is identified on this noncontrast study. The liver is enlarged measuring 21.7 cm. The gallbladder has been removed. The common hepatic duct and common bile duct mildly dilated, measuring up to 9 mm. No definite stricturing or beading of the bile ducts is seen to suggest primary sclerosing cholangitis or other intrinsic bile duct pathology. There is a 3 mm round filling defect within the mid to distal common bilateral, likely representing calculus The pancreatic duct is of normal caliber. There is no definite sign of pancreatic divisum or other congenital anomaly. There is no sign of acute pancreatitis. No definite pancreatic mass lesion is seen The spleen is mildly enlarged measuring 13.6 cm. No focal splenic lesion is evident. The adrenal glands appear unremarkable. No renal mass lesion is seen. There is no hydronephrosis The visualized aorta is of normal caliber. No adenopathy is seen. No ascites or pleural effusions are noted. No definite abnormality of the abdominal wall musculature is identified. There is a small hiatal hernia Impression: 1. Suspected choledocholithiasis with a 3 mm calculus in the mid to distal CBD 2. Mild bile duct prominence, within expected limits for the postcholecystectomy state. Mild obstruction from the calculus is also possible, however 3. Hepatomegaly 4. Small hiatal hernia 5. Mild splenomegaly Electronically signed by Alessandro Oconnell 10-23-2024 2:50 PM
--- NOTE | 2024-10-23 17:14 | Discharge Summary ---
Date of Service October 23, 2024 Admission HPI Per Admitting Provider Johnathan De Los Santos is a 59yo male presenting with epigastric pain. Patient had right rotator cuff surgery performed on 10/11/24. The surgery was well tolerated with no complications. He has been taking Toradol and Oxycodone q 6 hours for pain control. This AM around 04:30 patient developed severe epigastric pain with bandlike radiation across the upper abdomen. 6/10 in severity, burning/pressure. He has some nausea as well but no vomiting, chills and some diaphoresis associated with the pain. Patient with history of reflux - takes Protonix PRN. He had one prior episode of GIB in the past - June 2024 after taking Ibuprofen he passed several bloody BMs. Treated with a bland diet. Ate a little bit today - turkey sandwich around 10:30 - no change in his abdominal pain. No additional complaints at this time. In the ER patient afebrile, mildly hypertensive, in continued discomfort ER Course: NSS x 1L Pepcid 20mg IV Zofran 4mg IV Morphine 6mg + 4mg IV Protonix 40mg IV Labetalol 5mg IV Admission Exam Per Admitting Provider General: patient resting comfortably, NAD, non-toxic in appearance, AA&O x 4 Skin: warm, dry, intact, no rashes or lesions HEENT: NC/AT, PERRL, EOMI, anicteric sclera, conjunctiva without injection, external ear normal to inspection and nontender, nares patent, moist mucus membranes, dentition intact, no oropharyngeal lesions, neck supple, trachea midline, no LAD, no thyromegaly, no JVD Heart: +S1/S2, regular, no m/r/g Lungs: equal air entry bilaterally, no rales/rhonchi/wheezes Abd: +BS, soft, ND, epigastric tenderness on exam with some voluntary guarding, no masses/organomegaly/ascites Ext: warm, 2+ pulses in UE/LE bilaterally, no clubbing/cyanosis or edema Neuro: nonfocal, patient AA&O x 4, speech intact, no facial droop, moving all extremities on command with equal strength 5/5 Principal Diagnosis Choledocholithiasis Discharge Exam General: patient resting comfortably, NAD, non-toxic in appearance, answers questions appropriately. Skin: warm, dry, intact HEENT: NC/AT, anicteric sclera, conjunctiva without injection, moist mucus membranes. Heart: +S1/S2, regular, no m/r/g Lungs: equal air entry bilaterally, no rales/rhonchi/wheezes Abd: +BS, soft, mild epigastric tenderness radiating to RUQ/LUQ Ext: warm, no clubbing/cyanosis or edema, Julio's neg. Neuro: nonfocal, speech intact, no facial droop, moving all extremities. Discharge Data Allergies Allergy/AdvReac Type Severity Reaction Status Date / Time Qezutis-WJM-PrU Reductase Allergy Joint Pain Verified 10/21/24 03:32 Inhibitor Consultations 10/21/24 12:10 Consult Gastroenterology Routine Procedures Performed Operation Date: 10/21/24 18:15 Actual Procedures p EGD Biopsy Cytology - Gerald Willoughby MD Ordered Studies 10/20/24 20:52 CT abd pelvis IV con only Stat 10/21/24 14:35 US RUQ [US liver] Stat 10/23/24 11:12 MR MRCP Stat Laboratory Results WBC 5.72 K/ul (4.8-10.8) 10/23/24 06:44 RBC 5.02 M/uL (4.70-6.10) 10/23/24 06:44 Hgb 15.1 g/dl (14.0-18.0) 10/23/24 06:44 Hct 43.9 % (42.0-52.0) 10/23/24 06:44 MCV 87.5 fL (80.0-100.0) 10/23/24 06:44 MCH 30.1 pg (25.0-34.0) 10/23/24 06:44 MCHC 34.4 g/dL (32.0-36.0) 10/23/24 06:44 RDW Std Deviation 40.3 fL (36.4-46.3) 10/23/24 06:44 RDW Coeff of Emiliano 12.5 % (11.5-14.5) 10/23/24 06:44 Plt Count 188 K/uL (130-400) 10/23/24 06:44 MPV 10.6 fL (9.4-12.4) 10/23/24 06:44 Immature Gran % (Auto) 0.5 % 10/23/24 06:44 Neut % (Auto) 46.1 % 10/23/24 06:44 Lymph % (Auto) 21.2 % 10/23/24 06:44 [place] % (Auto) 8.6 % 10/23/24 06:44 Eos % (Auto) 21.5 % 10/23/24 06:44 Baso % (Auto) 2.1 % 10/23/24 06:44 Neut # (Auto) 2.64 K/uL (1.40-6.50) 10/23/24 06:44 Lymph # (Auto) 1.21 K/uL (1.20-3.40) 10/23/24 06:44 [place] # (Auto) 0.49 K/uL (0.11-0.59) 10/23/24 06:44 Eos # (Auto) 1.23 K/uL (0.00-0.50) H 10/23/24 06:44 Baso # (Auto) 0.12 K/uL (0.00-0.20) 10/23/24 06:44 Immature Gran # (Auto) 0.03 K/uL (0.01-0.20) 10/23/24 06:44 Sodium 137 mmol/L (136-145) 10/23/24 06:44 Potassium 3.3 mmol/L (3.5-5.1) L 10/23/24 06:44 Chloride 103 mmol/L (98-107) 10/23/24 06:44 Carbon Dioxide 27 mmol/L (21-32) 10/23/24 06:44 Anion Gap 7 (3-11) 10/23/24 06:44 BUN 16 mg/dl (6-23) 10/23/24 06:44 Creatinine 0.80 mg/dl (0.6-1.4) 10/23/24 06:44 Est Cr Clr Drug Dosing 135.5 ml/min 10/23/24 06:44 eGFR 101.95 10/23/24 06:44 BUN/Creatinine Ratio 20.0 (10-20) 10/23/24 06:44 Glucose 96 mg/dl (70-99(Fasting)) 10/23/24 06:44 Calcium 9.1 mg/dl (8.6-10.3) 10/23/24 06:44 Total Bilirubin 1.6 mg/dl (0.2-1.0) H D 10/23/24 06:44 Direct Bilirubin 0.1 mg/dl (0-0.2) 10/22/24 07:22 Direct Bilirubin Cancelled 10/22/24 07:22 AST 716 U/L (13-39) H 10/23/24 06:44 ALT 498 U/L (7-52) H 10/23/24 06:44 Alkaline Phosphatase 215 U/L (34-104) H D 10/23/24 06:44 Troponin I High Sens 4.5 pg/ml (0-20) 10/20/24 21:07 Total Protein 7.4 gm/dl (6.0-8.3) 10/23/24 06:44 Albumin 4.0 gm/dl (3.4-5.0) 10/23/24 06:44 Globulin 3.4 gm/dl (2.5-4.0) 10/23/24 06:44 Albumin/Globulin Ratio 1.2 (0.9-2) 10/23/24 06:44 Lipase 21 U/L (11-82) 10/20/24 21:07 Urine Color Yellow 10/20/24 21:09 Urine Appearance Clear (Clear) 10/20/24 21:09 Urine pH 5.5 (4.5-7.5) 10/20/24 21:09 Ur Specific [place] 1.022 (1.000-1.030) 10/20/24 21:09 Urine Protein Trace (Negative) H 10/20/24 21:09 Urine Glucose (UA) Negative (Negative) 10/20/24 21:09 Urine Ketones Negative (Negative) 10/20/24 21:09 Urine Blood Negative (Negative) 10/20/24 21:09 Urine Nitrite Negative (Negative) 10/20/24 21:09 Urine Bilirubin Negative (Negative) 10/20/24 21:09 Urine Urobilinogen Negative (Negative) 10/20/24 21:09 Ur Leukocyte Esterase Negative (Negative) 10/20/24 21:09 Urine WBC (Auto) 0-5 /hpf (0-5) 10/20/24 21:09 Urine RBC (Auto) 0-2 /hpf (0-2) 10/20/24 21:09 U Hyaline Cast (Auto) 0-2 /lpf (0-2) 10/20/24 21:09 U Epithel Cells (Auto) 0-2 /hpf (0-2) 10/20/24 21:09 Urine Bacteria (Auto) None Seen (None Seen) 10/20/24 21:09 Impressions Abdomen/Pelvis CT 10/20/24 20:52 Exam(s): CT ABDOMEN + PELVIS With Contrast IV Amt: 94ml optiray 320 EXAM: CT Abdomen and Pelvis With Intravenous Contrast CLINICAL HISTORY: Reason for exam: ruq pain. TECHNIQUE: Axial computed tomography images of the abdomen and pelvis with intravenous contrast. CTDI is 28.14 mGy and DLP is 1619.97 mGy-cm. Automated exposure control was utilized for the study. A dose lowering technique was utilized adhering to the principles of ALARA. CONTRAST: Patient received 94ml optiray 320 of IV contrast COMPARISON: No relevant prior studies available. FINDINGS: Lung bases: Unremarkable. ABDOMEN: Liver: Hepatic steatosis. Gallbladder and bile ducts: Cholecystectomy. Enlarged CBD, likely reservoir effect. Pancreas: Unremarkable. No mass. No ductal dilation. Spleen: Unremarkable. No splenomegaly. Adrenals: Unremarkable. No mass. Kidneys and ureters: Unremarkable. No solid mass. No hydronephrosis. Stomach and bowel: Incidentally noted duodenal diverticulum. No mucosal thickening. No bowel obstruction. PELVIS: Appendix: No evidence of appendicitis. Bladder: Unremarkable. No mass. Reproductive: Unremarkable as visualized. ABDOMEN and PELVIS: Intraperitoneal space: Unremarkable. No free air, significant free fluid, or fluid collection. Bones/joints: No acute fracture. No dislocation. Soft tissues: Fat-containing umbilical hernia. Vasculature: Unremarkable. No abdominal aortic aneurysm. Lymph nodes: Unremarkable. No enlarged lymph nodes. IMPRESSION: No acute findings in the abdomen or pelvis. Electronically signed by: Devonte Crespo M.D. 10/20/24 22:22 PM Chest X-Ray 10/20/24 20:52 Exam(s): XR CXR 1 VIEW EXAM: XR Chest, 1 View CLINICAL HISTORY: Reason for exam: abd pain. TECHNIQUE: Frontal view of the chest. COMPARISON: No relevant prior studies available. FINDINGS: Lungs: Unremarkable. No consolidation. Pleural space: Unremarkable. No pleural effusion or pneumothorax. Heart: Unremarkable. No cardiomegaly or pulmonary vascular congestion. Bones/joints: No acute fracture. No dislocation. IMPRESSION: No evidence of acute cardiopulmonary disease. Electronically signed by: Devonte Crespo M.D. 10/20/24 21:48 PM Liver Ultrasound 10/21/24 14:35 ABDOMINAL ULTRASOUND, RIGHT UPPER QUADRANT HISTORY: Acute right upper quadrant abdominal pain Assess for CBD pathology. COMPARISON: CT 10/20/2024 FINDINGS: Limited exam secondary to body habitus. Pancreas: The pancreas demonstrates a normal echotexture. Liver: Increased echogenicity with mild enlargement. No mass identified. Gallbladder: Cholecystectomy. CBD: 9 mm, likely on a post operative basis. Right kidney: No hydronephrosis. IMPRESSION: 1. Mild dilation of the common bile duct status post cholecystectomy, likely on a postoperative basis. 2. Hepatomegaly with hepatic steatosis. ACT 112: Negative or not required by law. Electronically signed by: Rd Petty M.D. 10/21/2024 3:36 PM Cholangiopancreatography MRI 10/23/24 11:12 Clinical history: Abdominal pain. Elevated liver function tests Technique: Multiple T1 and T2-weighted magnetic resonance images were obtained of the abdomen without gadolinium contrast. MRCP images were obtained Comparison is made to the CT dated 10/20/2024 Findings: No definite liver mass lesion is identified on this noncontrast study. The liver is enlarged measuring 21.7 cm. The gallbladder has been removed. The common hepatic duct and common bile duct mildly dilated, measuring up to 9 mm. No definite stricturing or beading of the bile ducts is seen to suggest primary sclerosing cholangitis or other intrinsic bile duct pathology. There is a 3 mm round filling defect within the mid to distal common bilateral, likely representing calculus The pancreatic duct is of normal caliber. There is no definite sign of pancreatic divisum or other congenital anomaly. There is no sign of acute pancreatitis. No definite pancreatic mass lesion is seen The spleen is mildly enlarged measuring 13.6 cm. No focal splenic lesion is evident. The adrenal glands appear unremarkable. No renal mass lesion is seen. There is no hydronephrosis The visualized aorta is of normal caliber. No adenopathy is seen. No ascites or pleural effusions are noted. No definite abnormality of the abdominal wall musculature is identified. There is a small hiatal hernia Impression: 1. Suspected choledocholithiasis with a 3 mm calculus in the mid to distal CBD 2. Mild bile duct prominence, within expected limits for the postcholecystectomy state. Mild obstruction from the calculus is also possible, however 3. Hepatomegaly 4. Small hiatal hernia 5. Mild splenomegaly Electronically signed by Alessandro Oconnell 10-23-2024 2:50 PM Hospital Course (1) Acute upper abdominal pain: (2) Gastritis: (3) Leukocytosis: (4) Hypertension: (5) Choledocholithiasis: Plan Plan Acute upper abdominal pain/Gastritis - Began 10/20 4:30 am, epigastric region and bilateral radiation to RUQ and LUQ - Pain control with IV morphine sulfate 4 mg Q3h - IV Pantoprazole 40mg BID - GI consult placed, EGD completed: positive for gastritis and mild CBD dilation - GI recs: abdominal U/S to r/o stone in CBD, if positive will need ERCP at tertiary center - RUQ U/S: Mild CBD dilation potentially due to postoperative changes from cholecystectomy February 2024 - LFTs: AST: 14 to 716 ALT: 12 to 498 Alk phos: 38 to 215 T.bili: 0.7 to 1.6 in 24 hours (10/22-10/23) - GI consult: recommend MRCP and potential ERCP - MRCP 10/23: choledocholithiasis with potential 3mm calculi causing filling defect in mid/distal CBD - Transfer to [facility] for ERCP Leukocytosis - WBC 13.65 -> 11.84 -> 7.18, neutrophils: 10.10 - Resolved HTN - Moderately hypertensive while in ED with more severe abdominal pain; resolving - Current 129/86 - Continue metoprolol succinate 100mg PO daily, Valsartan 320 mg, and chlorthalidone outpatient medications upon d/c Total Time Total Time Spent Total Time Spent (In Minutes): I spent 4o mins seeing the patient, reviewing studies, discussing case with GI, and documentation. Discharge Plan Discharge Items Patient Disposition: Transfer Acute Care Hospital Reason For Visit: EPIGASTRIC PAIN Discharge Diagnosis: Choledocholithiasis Condition on Discharge: Fair Activity: Per Instructions section Non-emergency contact: Primary Care Provider Call non-emergency contact if: your symptoms worsen Follow-up/Referrals: Meño Alvarez MD [Primary Care Provider] - Diet: Regular Addtl Attending Provider Instructions: Plan Acute upper abdominal pain/Gastritis/Choledocholithiasis - Began 10/20 4:30 am, epigastric region and bilateral radiation to RUQ and LUQ - Pain control with IV morphine sulfate 4 mg Q3h - IV Pantoprazole 40mg BID - GI consult placed, EGD completed: positive for gastritis and mild CBD dilation - GI recs: abdominal U/S to r/o stone in CBD, if positive will need ERCP at tertiary center - RUQ U/S: Mild CBD dilation potentially due to postoperative changes from cholecystectomy February 2024 - LFTs: AST: 14 to 716 ALT: 12 to 498 Alk phos: 38 to 215 T.bili: 0.7 to 1.6 in 24 hours (10/22-10/23) - GI consult: recommend MRCP and potential ERCP - MRCP 10/23: choledocholithiasis with potential 3mm calculi causing filling defect in mid/distal CBD - Transfer to [facility] for ERCP - Continue Protonix 40 mg PO daily home medication Leukocytosis - WBC 13.65 -> 11.84 -> 7.18, neutrophils: 10.10 - Resolved HTN - Moderately hypertensive while in ED with more severe abdominal pain; resolving - Current 129/86 - Continue metoprolol succinate 100mg PO daily, Valsartan 320 mg, and chlorthalidone outpatient medications upon d/c Pending Studies at Discharge: No Stand-Alone Forms: [facility] Skilled Items Patient informed of condition?: Yes DNR: No Discharge Level of Care: Other Communicable Disease: No Discharge Prognosis: Stable Lines: None Urinary Catheter: No Medications and DC Order Prescriptions: Continued metoprolol succinate 100 mg tablet extended release 24 hr 100 mg PO DAILY chlorthalidone 25 mg tablet 25 mg PO DAILY acyclovir 400 mg tablet 400 mg PO DAILY pantoprazole 40 mg tablet,delayed release (DR/EC) 40 mg PO DAILY valsartan 320 mg tablet 320 mg PO DAILY ezetimibe 10 mg tablet 10 mg PO DAILY Discharge Orders: Discharge Order (Routine); Ordered 10/23/24 Ordered By: Ryder Conner Admission Data Admit Date/Time: 10/20/24 23:59 Attending Provider: Justice [place] Admit Provider: Nhi Olivas Primary Care Provider: Meño Alvarez Other Providers: Gerald Willoughby Supervising Physician Co-Signing Physician Notes ATTESTATION I also saw the patient and confirmed verdugo portions of the history and exam. I agree with the impression and plan in the resident documentation, and as summarized below. He feels better this morning as he has not eaten, but LFTs and ductal enzymes all elevated this morning after being normal upon admission and during hospitalization until now. EXAM Vital signs as noted, stable Alert and oriented. No acute distress. Heart regular rate and rhythm Respirations nonlabored No abdominal tenderness appreciated. Bowel sounds noted throughout DATA Labs CBC normal Total bili 1.6 AST 716 ALT 419 AP 215 Imaging MRCP suggests 3mm CBD stone Micro No cultures upon admission IMPRESSION & PLAN Gastritis, NSAID induced Choledocholithiasis Acute rise in lab studies with resumption of diet and likely 3mm stone seen on MRCP Needs ERCP which is not available here Patient understanding of this and understands need for transfer to facility for definitive care Transfer pending bed availability He also has EGD-proven gastritis and still recommend PPI BID x 4-6 weeks before step down therapy Additional per resident documentation Resident Activity Tracking Resident Involvement: Resident Care Provided Care Provided: Adult Hospital Medicine
== END 2024-10-24 01:35 | disposition short-term general hospital (02) | DRG 446 ==
LOC: ED 20:41 → SUATTDRO 23:59 → EDINP 23:59 → 2N 10-21 02:25
DX: K31.7 Polyp of stomach and duodenum; K29.70 Gastritis, unspecified, without bleeding; K44.9 Diaphragmatic hernia without obstruction or gangrene; I10 Essential (primary) hypertension; K83.4 Spasm of sphincter of Oddi; K80.50 Calculus of bile duct without cholangitis or cholecystitis without obstruction; Z79.899 Other long term (current) drug therapy; E87.6 Hypokalemia